=== PATIENT | female | born 1985 | race Caucasian/White ===

== ENCOUNTER → 2017-03-02 | Outpatient (CLI) | payer MEDICAID ==
[~2017-03-02] VITALS: Ht 157.5 cm; Wt 63.5 kg
[~2017-03-02] MED LIST: BENTYL10 M1 PO; CENTRUM PO; CHLORASEPTIC177 M1 MM; CLARITIN10 M3 PO; CREON DR 36,001 EACH PO; DEXTROMETHORPHAN/GUA PO; KCL IV; LINZESS145 MCG PO; LOPERAMIDE HCL2 M1 PO; LOVENOX40 MG/0.4 INJ; MAGNESIUM CITR100 GM PO; MELATONIN5 M1 PO; MIRALAX17 GM PO; MYLANTA GAS80 M2 PO; NAPROXEN SODIU220 M1 PO; NEXIUM10 MG PO; ONDANSETRON HCL4 MG PO; ONDANSETRON4 MG/2 M1 INJ; OXYCODONE H5 MG/5 M1 PO; PAMELOR25 M2 PO; PEPOGEST0.2 ML PO; PHENERGAN25 M1 PO; PHENERGAN25 MG/1 M1 IV; PROMETHEGAN12.5 MG PR; REMERON15 MG PO; TIZANIDINE HCL4 M1 PO; TRANSDERM-SCOP1 EACH TD; VITAL CAL PO; [UNRECOGNIZED DRUG - OTHER] IV
== END | disposition home or self-care (01) ==
LOC: CSSDAY 09:00
DX: D64.9 Anemia, unspecified (principal)
CPT/HCPCS: 96374; Q0138

== ENCOUNTER → 2017-03-09 | Outpatient (CLI) | payer MEDICAID | END | disposition home or self-care (01) | LOC: CSSDAY 08:48 | DX: D64.9 Anemia, unspecified (principal) | CPT/HCPCS: 96374; J1642; Q0138 ==